=== PATIENT | male | born 1935 | race Caucasian/White ===

== ENCOUNTER 2022-04-17 09:23 | Emergency (ER) | payer MEDICARE ==
[~2022-04-17 09:23] MED LIST: BUSPIRONE15 MG PO; CLONIDINE HCL0.1 MG PO; COREG3.125 MG PO; DEPAKOTE250 MG PO; DONEPEZIL HCL10 MG PO; FLONASE ALLERG9.9 ML NAS; GAVISCON LIQUI355 ML PO; LAXA CLEAR1530 GM PO; LEXAPRO10 MG PO; LOMOTIL 2.5-0.1 EACH PO; LOVASTATIN20 MG PO; MUCINEX ER600 MG PO; NAMENDA10 MG PO; OXYBUTYNIN5 MG PO; PRESERVISION A1 EAC2 PO; PROTONIX40 MG PO; VITAMIN D31250 MCG PO; ZESTRIL40 MG PO
[2022-04-17] MEDS ORDERED: BUSPIRONE15 MG PO (09:52)
[2022-04-17] MEDS ORDERED: PRESERVISION A1 EAC3 PO (09:53)
[2022-04-17 10:08] LABS: BASO % 0.5 % (0.0-1.0); EOS # 0.3 10*3/uL (0.0-0.4); EOS % 5.2 % (1.0-4.0); HEMATOCRIT 40.4 % (42.0-52.0); LYMPH # 1.5 10*3/uL (1.3-4.4); LYMPH % 26.4 % (27.0-41.0); MEAN CELL VOLUME 86.7 fl (80.0-94.0); MEAN CORPUSCULAR HGB 28.1 pg (27.0-31.0); MEAN CORPUSCULAR HGB CONC 32.4 g/dl (33.0-37.0); MEAN PLATELET VOLUME 9.7 fl (9.6-12.3); MONO # 0.7 10*3/uL (0.1-1.0); MONO % 13.1 % (3.0-9.0); NEUT % 54.4 % (47.0-73.0); PLATELET COUNT AUTOMATED 175 10*3/uL (130-400); RED BLOOD COUNT 4.66 10*6/uL (4.50-5.90); RED CELL DISTRI WIDTH 13.6 % (0-14.5); WHITE BLOOD COUNT 5.6 10*3/uL (4.8-10.8)
[2022-04-17 10:19] LABS: ACT PARTIAL THROMBO TIME 26.8 SECONDS (20.0-32.1)
[2022-04-17 10:22] LABS: ALKALINE PHOSPHATASE 106 U/L (45-117); BUN 11 mg/dl (7-24); CHLORIDE 105 mmol/L (98-107); CREATININE 1.31 mg/dL (0.70-1.30); SGOT/AST 17 IU/L (3-35); SGPT/ALT 18 U/L (12-78); SODIUM 141 mmol/L (136-145); TOTAL PROTEIN 6.9 gm/dL (6.4-8.2)
[2022-04-17 10:38] LABS: ETHYL ALCOHOL < 3.0 mg/dl (<3)
[2022-04-17] MEDS ORDERED: ASPIRIN CHEWABL81 MG PO (11:24)
[2022-04-17 13:27] LABS: BILIRUBIN Negative (Negative); BLOOD Negative (Negative); CLARITY Clear (Clear); COLOR Yellow (Yellow); GLUCOSE 2+ (Negative); KETONE Negative (Negative); LEUKO ESTERASE Negative (Negative); NITRITE Negative (Negative); PH 5.5 (4.5-8.0)
[2022-04-17 13:35] LABS: URINE AMPHETAMINES < 1000 (1000ng/ml); URINE BARBITURATES < 200 (200ng/ml); URINE BENZODIAZEPINES < 200 (200ng/ml); URINE CANNABINOIDS (THC) < 50 (50ng/ml); URINE COCAINE < 300 (300ng/ml); URINE METHADONE < 300 (300ng/ml); URINE OPIATES < 300 (300ng/ml)
[2022-04-17 13:36] LABS: URINE PHENCYCLIDINE < 25 (25ng/ml)
== END 2022-04-17 14:32 | disposition admitted as inpatient to this hospital (09) ==
LOC: ED 09:23
PROVIDERS: Emergency Medicine
DX: F63.81 Intermittent explosive disorder (principal); Z20.822 Contact with and (suspected) exposure to COVID-19; Z88.6 Allergy status to analgesic agent; Z88.8 Allergy status to other drugs, medicaments and biological substances; Z79.899 Other long term (current) drug therapy